=== PATIENT | male | born 1975 | race Caucasian/White ===

== ENCOUNTER 2019-01-10 08:12 | Inpatient (IN) | payer BC ==
[2019-01-10] MEDS ORDERED: Ondansetron PF 4 MG/2 ML Vial ONE (08:40)
[2019-01-10] MEDS ORDERED: Morphine 4 MG/ML VIAL ONE ×4 (08:40→12:09)
[2019-01-10 08:58] LABS: #Basophils 0.1 thou/uL (0.0-0.2); #Eosinphils 0.2 thou/uL (0.0-0.7); #Lymphocytes 1.7 thou/uL (1.20-3.40); #Monocytes 0.8 thou/uL (0.11-0.59); #Neutrophils 12.9 thou/uL (1.40-6.50); %Basophils 0.9 % (0.0-1.0); %Eosinophils 1.4 % (0.0-10.0); %Lymphocytes 10.6 % (21.0-51.0); %Monocytes 5.2 % (0.0-10.0); Hemoglobin 14.5 g/dL (14.0-18.0); Mean Corpuscular HGB CONC 34.1 g/dL (32.0-36.0); Mean Corpuscular Hemoglobin 30.8 pg (27.0-31.0); Mean Corpuscular Volume 90.4 fL (78.0-98.0); Mean Platelet Volume 7.8 fL (7.4-10.4); Platelet Count 259 thou/uL (130-400); RBC Distribution Width 12.6 % (11.5-14.5); Red Blood Cell (RBC) Count 4.69 mill/uL (4.70-6.10); White Blood Cell (WBC) Count 15.8 thou/uL (4.8-10.8)
[2019-01-10 09:05] LABS: ALT (SGPT) 31 U/L (8-55); AST (SGOT) 21 U/L (5-34); Albumin 4.3 g/dL (3.5-5.0); Alkaline Phosphatase 59 U/L (40-150); Anion Gap 14 mmol/L (10-20); BUN (Urea Nitrogen) 8 mg/dL (8.9-20.6); Bilirubin, Total 0.6 mg/dL (0.2-1.2); Calc. Creatinine Clearance 0 mL/min (70-130); Calcium 9.5 mg/dL (7.8-10.44); Carbon Dioxide 26 mmol/L (22-29); Chloride 103 mmol/L (98-107); Estimated GFR-MDRD Greater than 90; Globulin 3.1 g/dL (2.4-3.5); Glucose 135 mg/dL (70-105); Lipase 378 U/L (8-78); Potassium 3.6 mmol/L (3.5-5.1); Protein, Total 7.4 g/dL (6.0-8.3); Sodium 139 mmol/L (136-145)
--- NOTE | 2019-01-10 09:07 | CT ---
CT STONE PROTOCOL: HISTORY:Abdominal pain COMPARISON: None DISCLAIMER: Absence of oral and IV contrast reduces the sensitivity of the exam particularly for the evaluation of solid organs and bowel. FINDINGS: The lung bases are clear there are dependent changes in the lung bases. No free air or free fluid is seen in the abdomen or pelvis. No calcified gallstones are noted. No calculi are seen in the kidneys, ureters or the urinary bladder. No hydroureteronephrosis seen on either side. The small bowel loops are not abnormally dilated. A normal-appearing appendix is present. There are vascular calcifications without evidence of aneurysmal dilatation of the abdominal aorta. No acute osseous abnormalities are seen. IMPRESSION: No CT evidence of urinary tract calculi/obstruction or appendicitis.
[2019-01-10 10:38] LABS: Bilirubin Negative (Negative); Blood, Urine Trace (Negative); Clarity Clear (Clear); Glucose, Urine (Dipstick) Negative (Negative); Leukocyte Negative (Negative); Nitrite Negative (Negative); Protein, Urine (Dipstick) Negative (Neg-Trace); Urobilinogen 0.2 mg/dL (Less than 2)
[2019-01-10 10:39] LABS: Bacteria/HPF None Seen HPF (None Seen); Epithelial Cast None Seen LPF (None Seen); RBC/HPF 0-3 HPF (0-3); Squamous Epithelial None Seen HPF (0-3); WBC/HPF 0-3 HPF (0-3)
[2019-01-10 13:00] VITALS: BMI 36.9
[2019-01-10] MEDS ORDERED: Ondansetron PF 4 MG/2 ML Vial IVP PRN (13:08)
[2019-01-10] MEDS ORDERED: Morphine 2 MG/ML SYRINGE SLOW IVP PRN (13:08)
[2019-01-10] MEDS ORDERED: Dextrose 5 %-0.45 % NaCl 1,000 ML IV SCH (13:15)
[2019-01-10] MEDS ORDERED: Acetaminophen 325 MG TAB PO PRN (14:08)
[2019-01-10] MEDS ORDERED: Pantoprazole 40 MG VIAL IVP SCH (14:30)
--- NOTE | 2019-01-10 15:38 | ULT ---
RIGHT UPPER QUADRANT ULTRASOUND: 01/10/19 HISTORY: Right upper quadrant abdominal pain. FINDINGS: A few small nonmobile echogenic foci are seen along the gallbladder wall which measure approximately 3 mm and are likely related to small gallbladder polyps. No gallbladder calculi are seen. There is no gallbladder wall thickening or pericholecystic fluid identified. The common duct measures 0.5 cm in diameter which is within normal limits. The liver demonstrates increased echogenicity suggesting diffuse fatty infiltration. The limited visualized portions of the pancreas, visualized portions of the IVC, and right kidney dem onstrate a normal sonographic appearance. The right kidney measures 10.4 cm in length. IMPRESSION: 1. Fatty infiltration of the liver. 2. Small gallbladder polyps. No gallbladder calculus is seen. POS: MONA
[2019-01-10] MEDS: Ketorolac Tromethamine 30 MG/ML VIAL IVP SCH ×2 (16:31→20:59)
[2019-01-10] MEDS: Morphine 2 MG/ML SYRINGE SLOW IVP PRN (16:32)
[2019-01-10] MEDS: Morphine 4 MG/ML VIAL SLOW IVP PRN ×3 (18:42→23:20)
[2019-01-10] MEDS: Pantoprazole 40 MG VIAL IVP SCH (20:59)
--- NOTE | 2019-01-10 21:02 | HP ---
CHIEF COMPLAINT: Abdominal pain. HISTORY OF PRESENT ILLNESS: The patient is a 43-year-old male with no significant past medical history, who comes into the hospital with complaints of abdominal pain x1 day. The patient stated that his pain started yesterday at 05:00 p.m., however, he was able to tolerate his dinner. The patient stated that he ate some Armenian food and did well. However, throughout the night, he started having worsening abdominal pain, which he did not think much of. The patient stated that this morning when he woke up, he had significant sharp intermittent pain on his abdomen, which increased in intensity, so he came in to the ER for further evaluation. He denies any diarrhea. He denies any fevers or chills. He stated that he was nauseated today, however, only with the pain. No emesis. The patient states that he does not take any ibuprofen or Aleve. He recently got and had his leftover red velvet cake, which made his stool very very red; however, he does not recall any dark stool. He stated that he had a bowel movement this morning. PAST MEDICAL HISTORY: Denies. PAST SURGICAL HISTORY: He has had a twisted testicle, that was untwisted when he was 10 years old. FAMILY HISTORY: Father has a history of heart disease. ALLERGIES: HE HAS NO KNOWN DRUG ALLERGIES. MEDICATIONS: He takes none. SOCIAL HISTORY: He drinks 1 to 2 drinks of vodka and also smokes half-a-pack of cigarettes on daily basis. Denies any drug use. He is a full code. Lives with his . REVIEW OF SYSTEMS: All negative except for the ones mentioned above in the HPI. PHYSICAL EXAMINATION: VITAL SIGNS: Temperature 98.7, pulse 72, respirations 16, O2 saturation 97% on room air, blood pressure 162/100. GENERAL: He is awake, alert, and oriented x3. Does not appear in distress. HEENT: Normocephalic, atraumatic. No lymphadenopathy noted. Pupils are equal and reactive to light. CV: S1 and S2 present. No murmurs, rubs, or gallops. LUNGS: Clear to auscultation. No rhonchi or wheezes noted. ABDOMEN: Soft. Bowel sounds are present x2. Pain upon palpation to epigastric and right upper quadrant. He has no pain upon palpation to his right lower quadrant or left lower quadrant. NEUROVASCULAR: No focal deficits noted. SKIN: No cuts, lesions, or bruises noted. LABORATORY AND DIAGNOSTIC DATA: Sodium of 139, potassium of 3.6, BUN of 8, creatinine of 0.81. Lipase is 378. Hematology; WBCs of 15.8, . Urine; his urine looks negative, just had a trace amount of blood. He did have a CT of abdomen and pelvis without contrast that did not indicate any acute appendicitis. No evidence of urinary tract calculi or obstruction either. ASSESSMENT AND PLAN: The patient is a 43-year-old male, who presents to the hospital with abdominal pain. 1. Abdominal pain. Could be secondary to gallbladder etiology versus reflux versus peptic ulcer versus pancreatitis. The patient states that he has had GERD since he was age of 14. The patient stated that he was diagnosed with this by his family physician and he normally takes an [id number] Nexium I believe, which helps his symptoms. Sometimes he will take Tums especially if he drinks orange juice or drinks or eats sausage. The patient states that his sensation is usually burning-like sensation. He has never had an endoscopy. No recent weight loss. I will start the patient on a PPI for now. I will get a right upper quadrant ultrasound. His lipase is mildly elevated, however, not significantly elevated. I do not believe this patient has appendicitis since he has no pain upon palpation to his right lower quadrant, possibly it could be a gallbladder pathology versus ulcer versus pancreatitis. However, again, pancreatitis is unlikely, but it is definitely a possibility. Also, we will consider getting GI to evaluate this patient. 2. Hypertension, most likely secondary to his pain. We will continue to monitor. 3. DVT prophylaxis. We will put the patient on some SCDs and subcu Lovenox. Job ID: [id number]
[2019-01-10] MEDS: Dextrose 5 % And 0.9 % NaCl 1,000 ML IV SCH (23:24)
[2019-01-11] MEDS: Dextrose 5 % And 0.9 % NaCl 1,000 ML IV SCH ×2 (01:46→09:32)
[2019-01-11] MEDS: Morphine 4 MG/ML VIAL SLOW IVP PRN ×5 (01:48→12:37)
[2019-01-11] MEDS: Ketorolac Tromethamine 30 MG/ML VIAL IVP SCH (03:47)
[2019-01-11 06:32] LABS: Band 4 % (5-11); Hemoglobin 14.7 g/dL (14.0-18.0); Lymphocytes 10 % (21-51); MDiff Complete? YES; Mean Corpuscular HGB CONC 34.3 g/dL (32.0-36.0); Mean Corpuscular Hemoglobin 31.1 pg (27.0-31.0); Mean Corpuscular Volume 90.7 fL (78.0-98.0); Mean Platelet Volume 7.1 fL (7.4-10.4); Monocytes 5 % (0-10); Neutrophil 81 % (42-75); Platelet Count 274 thou/uL (130-400); Platelet Morphology Comment Appears Adequate; RBC Distribution Width 12.3 % (11.5-14.5); Red Blood Cell (RBC) Count 4.74 mill/uL (4.70-6.10)
[2019-01-11 06:39] LABS: ALT (SGPT) 20 U/L (8-55); AST (SGOT) 13 U/L (5-34); Albumin 4.3 g/dL (3.5-5.0); Alkaline Phosphatase 60 U/L (40-150); Anion Gap 10 mmol/L (10-20); BUN (Urea Nitrogen) 4 mg/dL (8.9-20.6); Bilirubin, Total 1.5 mg/dL (0.2-1.2); Calc. Creatinine Clearance 204 mL/min (70-130); Calcium 9.9 mg/dL (7.8-10.44); Carbon Dioxide 29 mmol/L (22-29); Chloride 100 mmol/L (98-107); Estimated GFR-MDRD Greater than 90; Globulin 3.3 g/dL (2.4-3.5); Glucose 124 mg/dL (70-105); Potassium 3.4 mmol/L (3.5-5.1); Protein, Total 7.6 g/dL (6.0-8.3); Sodium 136 mmol/L (136-145)
--- NOTE | 2019-01-11 09:34 | CON ---
DATE OF CONSULTATION: 01/10/2019 REASON FOR CONSULTATION: Acute abdominal pain. HISTORY OF PRESENT ILLNESS: Mr. Bo Prakash is a very pleasant 43-year-old male who appears very healthy without any major medical problems. The patient developed abdominal pain yesterday around 5 p.m. The pain was sharp in nature, is stabbing over the epigastric area. The pain was mild to begin with and he did eat a good supper. However, through the night, he was found restless with the pain. Interestingly, he has no nausea, no vomiting. He has no diarrhea, no fever. No dysuria or hematuria. The pain is persistent and at times comes in waves also. It is more like a stabbing pain. He went to the [facility] ER this morning and His routine blood test shows mildly elevated lipase of 378. The liver function tests are normal. Abdomen CAT scan, noncontrast. CAT scan is negative. Subsequently, he had another abdominal sonogram, which shows no gallstones. Does show some gallbladder polyps. Actually, he feels hungry and he wants to eat something. He said the pain is over the periumbilical epigastric area and is stabbing in nature and comes in waves. When he takes the pain medications, he feels little better. He has no similar episodes. Denies history of any aspirin or any NSAID intake. Does smoke one-half packet of cigarettes. He also drinks socially. He usually drinks one alcoholic drink every day and at times he does drink heavy. However, he has no recent alcohol intake. No history of drug abuse. MEDICAL ILLNESSES: None, except borderline hypertension. No history of diabetes, asthma, heart disease or lung disease. PAST SURGICAL HISTORY: History of testicular torsion at age of 10 and surgery. MEDICATIONS AT HOME: None. REVIEW OF SYSTEMS: A 10-point systems reviewed, totally unremarkable except for abdominal pain. The pain is over the epigastric area and does not have nausea or vomiting. PHYSICAL EXAMINATION: GENERAL: He appears very comfortable, in no acute distress. VITAL SIGNS: Afebrile, pulse is 78, and blood pressure 142/88. HEENT: Conjunctivae clear. NECK: Supple. No adenitis or thyromegaly noted. CARDIOVASCULAR SYSTEM: First and second heart sounds were heard. LUNGS: Clear to auscultation. ABDOMEN: Abdomen is soft. Abdomen is nondistended. Abdomen is tender over the epigastric area. There is no rebound or guarding. Overall, the exam is very benign except for mild tenderness over the epigastric area. Bowel sounds are normal. EXTREMITIES: Reveal no edema. LABORATORY DATA: CBC; WBC 15,800, hemoglobin is 14.5, hematocrit 42.4, MCV 90.4, platelet count 259,000, polymorphs 82, lymphocytes 10. Serum chemistries are totally unremarkable. Liver function tests are normal. Lipase 378. BMP normal. Abdominal CAT scan, followup sonogram revealed no pathology. CLINICAL IMPRESSION: Acute abdominal pain, etiology unclear. It is possible he could have ulcer disease. Interestingly, he has severe pain, but he has no nausea or any accompanying symptoms. Serum lipase is slightly elevated. I really do not think he has pancreatitis. RECOMMENDATIONS: 1. Clear liquid diet. 2. We will consider an EGD tomorrow. 3. Further recommendations after EGD. Job ID: [id number]
[2019-01-11] MEDS: Enoxaparin Sodium 40 MG/0.4 ML SYRINGE SC SCH (09:35)
[2019-01-11] MEDS: Pantoprazole 40 MG VIAL IVP SCH ×2 (09:36→20:14)
[2019-01-11] MEDS ORDERED: Ketamine 50 MG/ML (10ML VIAL) ONE (15:40)
[2019-01-11] MEDS ORDERED: Fentanyl 100 MCG/2 ML VIAL ONE (16:29)
[2019-01-11] MEDS ORDERED: Promethazine HCl 25 MG/ML VIAL SLOW IVP PRN (17:01)
[2019-01-11] MEDS ORDERED: Ondansetron HCl/PF 4 MG/2 ML Vial IVP PRN (17:01)
[2019-01-11] MEDS ORDERED: Promethazine HCl 25 MG/ML VIAL IM PRN (17:01)
--- NOTE | 2019-01-11 18:45 | OP ---
DATE OF PROCEDURE: 01/11/2019 PROCEDURE PERFORMED: Esophagogastroduodenoscopy (diagnostic). INDICATION FOR PROCEDURE: Mid-epigastric abdominal pain. DESCRIPTION OF PROCEDURE: After the risks and benefits of the procedure were explained to the patient including risks of bleeding, infection, perforation, reactions to anesthesia, aspiration, and/or pain, informed consent was obtained. The patient was then taken to the endoscopy suite, where deep sedation was administered via propofol and the anesthesia support. Once adequate sedation was achieved, the standard gastroscope was introduced into the mouth with intubation of the esophagus, stomach, and the proximal small intestine with the findings listed below. The patient tolerated the procedure well with no immediate perioperative complications. Upon conclusion of the procedure, he was transferred to PACU in satisfactory condition. FINDINGS: Esophagus: Normal-appearing mucosa was seen in the proximal, mid, and distal esophagus. There was no evidence of erosions, ulcerations, mass lesions, or active/recent bleeding. Stomach: Normal-appearing mucosa was seen in the gastric cardia, fundus, body, greater curvature, antrum, and incisura. There was no evidence of erosions, ulcerations, mass lesions, or active/recent bleeding. Duodenum: Normal-appearing mucosa was seen in both the duodenal bulb and second portion of the duodenum. There was no evidence of erosions, ulcerations, mass lesions, or active/recent bleeding. IMPRESSION: 1. Normal upper endoscopy. 2. No etiology for the patient's abdominal pain was seen during this examination. RECOMMENDATIONS: 1. We would continue to monitor the patient clinically for improvement of his abdominal pain. 2. We would increase his IV fluid administration to 150 mL/h of normal saline given the higher likelihood of pancreatitis (his lipase is greater than three times upper limit of normal). 3. We would slowly start advancing the patient's diet, starting with clear liquids and advancing to a low-fat diet over time. 4. Pain control per Primary Team. 5. If the patient continues to exhibit significant abdominal pain, I would repeat the CT scan with a more dedicated imaging of his abdomen for further evaluation of the pancreas and possible sequelae of complicated pancreatitis. We will continue to follow. Please call with any questions. Job ID: [id number]
[2019-01-11] MEDS: Sodium Chloride 0.9% 1,000 ML IV SCH (18:52)
[2019-01-11] MEDS: Morphine 2 MG/ML SYRINGE SLOW IVP PRN (20:21)
--- NOTE | 2019-01-11 20:31 | PDOC.HOSPP ---
- Subjective Subjective: pt up in bed still has pain to his left upper quadrant - Objective Vital Signs & Weight: Vital Signs (12 hours) Temp Pulse Resp BP Pulse Ox 01/11/19 19:11 97.9 F 103 H 16 144/95 H 94 L 01/11/19 12:00 99.4 F 106 H 12 131/82 95 Weight Weight 280 lb I&O: 01/10/19 01/11/19 01/12/19 06:59 06:59 06:59 Intake Total 2325 Balance 2325 Result Diagrams: 01/11/19 05:57 01/11/19 05:57 ROS - Review of Systems All systems: All other ROS were reviewed and found negative. Respiratory: denies: cough, dry, shortness of breath, hemoptysis, SOB with excertion, pleuritic pain, sputum, wheezing, other Cardiovascular: denies: chest pain, palpitations, orthopnea, paroxysmal noc. dyspnea, edema, light headedness, other - Medication Medications: Active Medications Generic Name Dose Route Start Last Admin Trade Name Freq PRN Reason Stop Dose Admin Acetaminophen 650 mg 01/10/19 14:08 01/11/19 18:55 Tylenol PO 650 mg Q4H PRN Administration Headache/Fever/Mild Pain (1-3) Enoxaparin Sodium 40 mg 01/11/19 09:00 01/11/19 09:35 Lovenox SC 40 mg 0900 NYDIA Administration Sodium Chloride 1,000 mls @ 150 mls/hr 01/11/19 17:00 01/11/19 18:52 Normal Saline 0.9% IV 01/12/19 17:01 1,000 mls .[id number] NYDIA Administration Morphine Sulfate 2 mg 01/10/19 14:11 01/11/19 20:21 Morphine SLOW IVP 2 mg Q4H PRN Administration Moderate to Severe Pain (6-10) Morphine Sulfate 4 mg 01/10/19 16:36 01/11/19 12:37 Morphine SLOW IVP 4 mg Q2H PRN Administration Moderate Pain (4-6) Pantoprazole Sodium 40 mg 01/10/19 21:00 01/11/19 20:14 Protonix IVP 40 mg Q12HR NYDIA Administration - Exam Heart: negative: RRR, no murmur, no gallops, no rubs, normal peripheral pulses, irregular, diminshed peripheral pulses, murmur present, II/IV, III/IV Respiratory: negative: CTAB, no wheezes, no rales, no ronchi, normal chest expansion, no tachypnea, normal percussion, rales, rhonchi, tachypneic, wheezes Gastrointestinal: soft (pain on palpation to left upper quadrant), normal bowel sounds Hosp A/P (1) Pain in the abdomen Code(s): R10.9 - UNSPECIFIED ABDOMINAL PAIN Status: Acute (2) Pancreatitis Code(s): K85.90 - ACUTE PANCREATITIS WITHOUT NECROSIS OR INFECTION, UNSP Status: Acute - Plan RUQ small polyp in gallbladder, egd normal. possible pancreatitis. will also get CTA to rule out PE.
--- NOTE | 2019-01-11 21:00 | CT ---
CT angiogram chest: 01/11/2019 COMPARISON: None HISTORY: Pain when taking a deep breath TECHNIQUE: Axial CT imaging at 2.5 mm intervals from thoracic inlet through upper abdomen with IV con trast using a CT angiogram protocol. Coronal and oblique sagittal 3-D reformatted imaging obtained. FINDINGS: There is no axillary, hilar, or mediastinal lymphadenopathy. No pleural, pericardial, or me diastinal fluid. No pulmonary arterial embolism is appreciated. No pneumothorax is seen on either side. There is subpleural emphysematous change noted within the right upper lobe superiorly. There is multi focal peripheral parenchymal opacity involving the bilateral lower lobes posteriorly and inferiorly, as well as within the inferior lateral lingula. This may represent multifocal infectious pneumonitis or volume loss within both lung bases. There is no endobronchial lesion evident. No acute osseous abnormality. IMPRESSION: No evidence for pulmonary arterial embolism. Multifocal peripheral pulmonary parenchymal opacity within both lung bases and the lingula which may represent atelectasis or multifocal infectious pneumonitis.
[2019-01-12] MEDS: Sodium Chloride 0.9% 1,000 ML IV SCH ×3 (01:36→15:23)
[2019-01-12] MEDS: Morphine 2 MG/ML SYRINGE SLOW IVP PRN (03:07)
[2019-01-12] MEDS: Morphine 4 MG/ML VIAL SLOW IVP PRN ×3 (08:20→18:03)
[2019-01-12] MEDS: Enoxaparin Sodium 40 MG/0.4 ML SYRINGE SC SCH (08:20)
[2019-01-12] MEDS: Pantoprazole 40 MG VIAL IVP SCH ×2 (08:20→20:24)
[2019-01-12 09:31] LABS: #Eosinphils 0.1 thou/uL (0.0-0.7); #Lymphocytes 1.5 thou/uL (1.20-3.40); #Monocytes 1.4 thou/uL (0.11-0.59); #Neutrophils 13.6 thou/uL (1.40-6.50); %Basophils 0.2 % (0.0-1.0); %Eosinophils 0.8 % (0.0-10.0); %Lymphocytes 9.3 % (21.0-51.0); %Monocytes 8.1 % (0.0-10.0); %Neutrophils 81.7 % (42.0-75.0); Hemoglobin 12.8 g/dL (14.0-18.0); Mean Corpuscular HGB CONC 34.3 g/dL (32.0-36.0); Mean Corpuscular Hemoglobin 31.4 pg (27.0-31.0); Mean Corpuscular Volume 91.7 fL (78.0-98.0); Platelet Count 223 thou/uL (130-400); RBC Distribution Width 12.3 % (11.5-14.5); Red Blood Cell (RBC) Count 4.07 mill/uL (4.70-6.10); White Blood Cell (WBC) Count 16.6 thou/uL (4.8-10.8)
[2019-01-12 09:50] LABS: Anion Gap 12 mmol/L (10-20); BUN (Urea Nitrogen) 5 mg/dL (8.9-20.6); Calc. Creatinine Clearance 214 mL/min (70-130); Calcium 9.5 mg/dL (7.8-10.44); Carbon Dioxide 27 mmol/L (22-29); Chloride 103 mmol/L (98-107); Estimated GFR-MDRD Greater than 90; Glucose 111 mg/dL (70-105); Potassium 3.7 mmol/L (3.5-5.1); Sodium 138 mmol/L (136-145)
--- NOTE | 2019-01-12 17:19 | PRG ---
DATE OF SERVICE: 01/12/2019 SUBJECTIVE: This is a 43-year-old male hospitalized 2 days ago with acute abdominal pain. The pain is . He had no nausea or vomiting. No fever. He was found to have mildly elevated lipase level. His liver function tests were not elevated. He had an EGD done yesterday by Dr. Morelos and the EGD was basically negative. It appears that he has mild pancreatitis. He had a wedding over the weekend and apparently he did drink quite a bit. It appears as most likely as pancreatitis from alcohol intake. His gallbladder ultrasound shows no gallstones. He is making slow but steady progress. His abdominal pain is getting better. He has no nausea or vomiting. Diet has been advanced to mechanical soft diet from this morning. OBJECTIVE: VITAL SIGNS: Afebrile, pulse is 101, blood pressure is . HEENT: Conjunctivae clear. CARDIOVASCULAR SYSTEM: First and second heart sounds normal. LUNGS: Clear to auscultation. ABDOMEN: Soft and nondistended. Abdomen is minimally tender over the epigastric area. EXTREMITIES: There is no edema noted. LABORATORY DATA: Shows WBC 16,600, hemoglobin is 12.8, hematocrit 37.3, no bandemia, polymorphs 81, lymphocytes 9. Chem-7 is normal. Glucose 111. No serum lipase is done in this admission. CLINICAL IMPRESSION: Resolving pancreatitis, most likely alcohol related. RECOMMENDATIONS: Mechanical soft diet today and advance diet to regular diet if he does well. Repeat serum lipase tomorrow. Dr. Nabor Morelos is on-call for me and he will be seeing the patient until discharge. Job ID: [id number]
--- NOTE | 2019-01-13 07:32 | PDOC.HOSPP ---
- Subjective Subjective: pt states he feel wells today, still has some pain - Objective Vital Signs & Weight: Vital Signs (12 hours) Temp Pulse Resp BP Pulse Ox 01/13/19 04:00 98.3 F 92 18 123/73 93 L 01/13/19 00:00 99.0 F 108 H 18 133/81 93 L 01/12/19 20:15 94 L 01/12/19 19:45 98.7 F 112 H 18 142/91 H 94 L Weight Weight 280 lb Result Diagrams: 01/12/19 09:08 01/12/19 09:08 ROS - Review of Systems All systems: All other ROS were reviewed and found negative. Respiratory: denies: cough, dry, shortness of breath, hemoptysis, SOB with excertion, pleuritic pain, sputum, wheezing, other Cardiovascular: denies: chest pain, palpitations, orthopnea, paroxysmal noc. dyspnea, edema, light headedness, other - Medication Medications: Active Medications Generic Name Dose Route Start Last Admin Trade Name Freq PRN Reason Stop Dose Admin Acetaminophen 650 mg 01/10/19 14:08 01/11/19 18:55 Tylenol PO 650 mg Q4H PRN Administration Headache/Fever/Mild Pain (1-3) Enoxaparin Sodium 40 mg 01/11/19 09:00 01/12/19 08:20 Lovenox SC 40 mg 0900 NYDIA Administration Morphine Sulfate 2 mg 01/10/19 14:11 01/12/19 03:07 Morphine SLOW IVP 2 mg Q4H PRN Administration Moderate to Severe Pain (6-10) Morphine Sulfate 4 mg 01/10/19 16:36 01/12/19 18:03 Morphine SLOW IVP 4 mg Q2H PRN Administration Moderate Pain (4-6) Pantoprazole Sodium 40 mg 01/10/19 21:00 01/12/19 20:24 Protonix IVP 40 mg Q12HR NYDIA Administration - Exam Neck: negative: supple, symmetric, no JVD, no Thyromegaly, no lymphadenopathy, no carotid bruit, JVD Heart: negative: RRR, no murmur, no gallops, no rubs, normal peripheral pulses, irregular, diminshed peripheral pulses, murmur present, II/IV, III/IV Respiratory: negative: CTAB, no wheezes, no rales, no ronchi, normal chest expansion, no tachypnea, normal percussion, rales, rhonchi, tachypneic, wheezes Hosp A/P (1) Pain in the abdomen Code(s): R10.9 - UNSPECIFIED ABDOMINAL PAIN Status: Acute (2) Pancreatitis Code(s): K85.90 - ACUTE PANCREATITIS WITHOUT NECROSIS OR INFECTION, UNSP Status: Acute - Plan cta no PE, pt is afebrile will trend wbc. will advance his diet. if tolerates possible home in am. Plan was discussed with gi and pt.
[2019-01-13 07:50] LABS: #Eosinphils 0.3 thou/uL (0.0-0.7); #Lymphocytes 1.4 thou/uL (1.20-3.40); #Monocytes 1.2 thou/uL (0.11-0.59); #Neutrophils 10.2 thou/uL (1.40-6.50); %Basophils 0.3 % (0.0-1.0); %Eosinophils 1.9 % (0.0-10.0); %Lymphocytes 10.7 % (21.0-51.0); %Neutrophils 78.1 % (42.0-75.0); Hemoglobin 12.9 g/dL (14.0-18.0); Mean Corpuscular HGB CONC 33.1 g/dL (32.0-36.0); Mean Corpuscular Hemoglobin 30.4 pg (27.0-31.0); Mean Corpuscular Volume 92.1 fL (78.0-98.0); Mean Platelet Volume 6.8 fL (7.4-10.4); Platelet Count 255 thou/uL (130-400); RBC Distribution Width 12.2 % (11.5-14.5); Red Blood Cell (RBC) Count 4.24 mill/uL (4.70-6.10); White Blood Cell (WBC) Count 13.1 thou/uL (4.8-10.8)
[2019-01-13] MEDS: Pantoprazole 40 MG VIAL IVP SCH (08:52)
[2019-01-13] MEDS: Enoxaparin Sodium 40 MG/0.4 ML SYRINGE SC SCH (08:53)
[2019-01-13 11:39] VITALS: BP 130/84; TEMP 98.3
== END 2019-01-13 11:23 | disposition home or self-care (01) | DRG 440 ==
LOC: SCSER 08:12 → SURG A 12:56
PROVIDERS: ADMIT Internal Medicine; ATTEND Internal Medicine
PROC: 0DJ08ZZ Inspection of Upper Intestinal Tract, Via Natural or Artificial Opening Endoscopic (ICD-10-PCS; principal; 2019-01-11)
DX: K85.20 Alcohol induced acute pancreatitis without necrosis or infection (principal); F17.210 Nicotine dependence, cigarettes, uncomplicated; K21.9 Gastro-esophageal reflux disease without esophagitis; I10 Essential (primary) hypertension
CPT/HCPCS: 36415; 71275; 74176; 76705; 80048; 80053; 81003; 81015; 83690; 85025; 96361; 96374; 96375; 96376; C9113; J0131; J1650; J1885; J2270; J2405; J3010